=== PATIENT | female | born 1960 ===

== ENCOUNTER 2021-02-26 07:15 | Inpatient (IN) | payer OTHER ==
[~2021-02-26] VITALS: Ht 157.5 cm; Wt 62.1 kg
[2021-02-26] MEDS ORDERED: NORVASC5 MG PO (09:00)
[2021-02-26] MEDS ORDERED: BYSTOLIC5 MG PO (09:00)
[2021-02-26] MEDS ORDERED: SYNTHROID PO (09:01)
[2021-03-06] MEDS ORDERED: LEVO-T25 MCG (11:54)
== END 2021-03-07 12:05 | disposition home or self-care (01) | DRG 741 ==
LOC: O/R 03-06 06:10 → OB/GYN 03-06 07:15
PROVIDERS: ADMIT Obstetrics & Gynecology Gynecologic Oncology; ATTEND Obstetrics & Gynecology Gynecologic Oncology
PROC: 0UT74ZZ Resection of Bilateral Fallopian Tubes, Percutaneous Endoscopic Approach (ICD-10-PCS; 2021-03-06)
PROC: 0UT24ZZ Resection of Bilateral Ovaries, Percutaneous Endoscopic Approach (ICD-10-PCS; 2021-03-06)
PROC: 3E0F7SF Introduction of Other Gas into Respiratory Tract, Via Natural or Artificial Opening (ICD-10-PCS; 2021-03-06)
PROC: 0UT94ZZ Resection of Uterus, Percutaneous Endoscopic Approach (ICD-10-PCS; principal; 2021-03-06 09:00)
DX: C54.1 Malignant neoplasm of endometrium (principal)